=== PATIENT | female | born 1940 | race Caucasian/White ===

== ENCOUNTER 2017-04-17 11:59 | Emergency (ER) | payer MEDICAID ==
[~2017-04-17] VITALS: Ht 152.4 cm; Wt 62.6 kg
[~2017-04-17 11:59] MED LIST: ZESTRIL20 PO
[2017-04-17 14:30] LABS: microscopic required? NO
[2017-04-17 14:40] LABS: UA SPECIFIC GRAVITY <=1.005 (1.005-1.035); urine erythrocyte NEGATIVE (NEGATIVE)
[2017-04-17 14:43] LABS: BASOPHIL % 0.3 % (0-2); PLATELET COUNT 174 x10^3mcL (130-400); RED CELL DISTRIBUTION WIDTH 13.2 % (11.5-14.5)
[2017-04-17 14:46] LABS: CALCIUM 9.4 mg/dL (8.5-10.1); CARBON DIOXIDE 26.8 mmol/L (21-32); CHLORIDE SERUM 107 mmol/L (98-107); CREATININE SERUM 0.6 mg/dL (0.6-1.0); GLUCOSE SERUM 97 mg/dL (74-106); POTASSIUM SERUM 3.8 mmol/L (3.5-5.1); SODIUM SERUM 143 mmol/L (136-145)
[2017-04-17 14:51] LABS: ALBUMIN 3.7 g/dL (3.4-5.0); ALKALINE PHOSPHATASE 82 U/L (46-116); ALT/SGPT 30 U/L (14-59); AST/SGOT 23 U/L (15-37); BILIRUBIN TOTAL 0.6 mg/dL (0.20-1.00)
[2017-04-17 16:45] VITALS: BP 143/74
== END 2017-04-17 16:45 | disposition home or self-care (01) ==
LOC: ED 11:59
PROVIDERS: Emergency Medicine
DX: R51 Headache (principal); R42 Dizziness and giddiness; H10.9 Unspecified conjunctivitis; I10 Essential (primary) hypertension
CPT/HCPCS: J3360; J7030; J8597

== ENCOUNTER 2018-09-02 18:14 | Inpatient (IN) | payer MEDICAID ==
[~2018-09-02] VITALS: Ht 152.4 cm; Wt 63.3 kg
[2018-09-02 18:17] VITALS: Ht 152.4 cm; Wt 63.3 kg
[2018-09-02 21:07] LABS: BASOPHIL % 0.4 % (0-2); PLATELET COUNT 186 x10^3mcL (130-400); RED CELL DISTRIBUTION WIDTH 12.7 % (11.5-14.5)
[2018-09-02 21:08] LABS: UA SPECIFIC GRAVITY <=1.005 (1.005-1.035); microscopic required? YES; urine erythrocyte TRACE (NEGATIVE)
[2018-09-02 21:15] LABS: CALCIUM 9.4 mg/dL (8.5-10.1); CHLORIDE SERUM 104 mmol/L (98-107); CREATININE SERUM 0.7 mg/dL (0.6-1.0); GLUCOSE SERUM 120 mg/dL (74-106); POTASSIUM SERUM 3.5 mmol/L (3.5-5.1); SODIUM SERUM 141 mmol/L (136-145)
[2018-09-02 21:27] LABS: ALBUMIN 4.1 g/dL (3.4-5.0); ALKALINE PHOSPHATASE 69 U/L (46-116); ALT/SGPT 22 U/L (14-59); AST/SGOT 15 U/L (15-37); BILIRUBIN TOTAL 0.37 mg/dL (0.20-1.00); FREE T4 0.88 ng/dL (0.76-1.46); LIPASE 124 IU/L (73-393)
[2018-09-02 23:33] LABS: CHOLESTEROL/HDL RATIO 3.3; MAGNESIUM 2.1 mg/dL (1.8-2.4); PHOSPHOROUS 2.7 mg/dL (2.5-4.9)
[2018-09-03 00:13] VITALS: BP 144/85
[2018-09-03 06:00] VITALS: BP 144/74
[2018-09-03 07:05] LABS: CALCIUM 9.3 mg/dL (8.5-10.1); CARBON DIOXIDE 27.3 mmol/L (21-32); CHLORIDE SERUM 106 mmol/L (98-107); CREATININE SERUM 0.8 mg/dL (0.6-1.0); GLUCOSE SERUM 134 mg/dL (74-106); POTASSIUM SERUM 3.6 mmol/L (3.5-5.1); SODIUM SERUM 139 mmol/L (136-145)
[2018-09-03 07:06] LABS: BASOPHIL % 0.3 % (0-2); PLATELET COUNT 183 x10^3mcL (130-400); RED CELL DISTRIBUTION WIDTH 12.8 % (11.5-14.5)
[2018-09-03 07:07] LABS: T3 TOTAL 1.12 ng/mL
[2018-09-03 07:10] LABS: FREE T4 0.98 ng/dL (0.76-1.46); FREE THYROXINE INDEX 2.2 ug/dL (1.4-4.5); T4(THYROXINE) 6.3 ug/dL (4.7-13.3)
[2018-09-03 07:58] VITALS: BP 123/64
[2018-09-03 13:03] VITALS: BP 108/56
[2018-09-03 16:26] VITALS: BP 136/67
[2018-09-03 20:25] VITALS: BP 148/74
[2018-09-04 06:06] VITALS: BP 130/69
[2018-09-04 10:22] VITALS: BP 143/77
[2018-09-04 13:47] VITALS: BP 140/69
[2018-09-04 16:29] VITALS: BP 142/77
[2018-09-04 21:09] VITALS: BP 149/71
[2018-09-05 05:54] VITALS: BP 150/75
[2018-09-05 08:00] VITALS: BP 142/76
[2018-09-05 08:20] VITALS: BP 161/72
[2018-09-05 13:15] VITALS: BP 167/80
[2018-09-05 13:30] VITALS: BP 140/69
[2018-09-05] MEDS ORDERED: LIPI10 PO (13:32)
[2018-09-05] MEDS ORDERED: MECLIZINE HYDRO25 M1 PO (13:33)
[2018-09-05] MEDS ORDERED: TOP50 PO (13:33)
[2018-09-05] MEDS ORDERED: NOVAPLUS LIDOCAINE5% TD (13:33)
[2018-09-05 14:33] VITALS: BP 140/69
== END 2018-09-05 17:53 | disposition home or self-care (01) | DRG 243 ==
LOC: ED 18:14 → DU 23:24
PROVIDERS: Emergency Medicine; General Practice
DX: K21.9 Gastro-esophageal reflux disease without esophagitis (principal); G90.8 Other disorders of autonomic nervous system; K76.0 Fatty (change of) liver, not elsewhere classified; M94.0 Chondrocostal junction syndrome [Tietze]; K57.30 Diverticulosis of large intestine without perforation or abscess without bleeding; I10 Essential (primary) hypertension; D17.71 Benign lipomatous neoplasm of kidney; M54.32 Sciatica, left side; M54.31 Sciatica, right side; K59.00 Constipation, unspecified; M51.36 Other intervertebral disc degeneration, lumbar region; E78.5 Hyperlipidemia, unspecified; Z68.24 Body mass index [BMI] 24.0-24.9, adult
CPT/HCPCS: 83880; 84439; 97110-GP; 97116-GP; J2270; J7030; J8597; Q0092; Q9967